=== PATIENT | male | born 1980 | race Caucasian/White ===

== ENCOUNTER → 2019-05-25 | Outpatient (CLI) | payer OTHER ==
[~2019-05-25] MED LIST: CETI10TA22 PO; DEXT10TA23 PO; DEXT25CA4 PO; ESZO3TAB28 PO; PANT40GR PO
[2019-05-25 12:52] LABS: BASO # 0.1 x10^3/uL (0.0-0.2); BASO % 1 % (0-3); EOS # 0.1 x10^3/uL (0.0-0.7); EOS % 1 % (0-3); HEMATOCRIT 44.1 % (39.0-53.0); HEMOGLOBIN 14.8 g/dL (13.0-17.5); LYMPH # 2.3 x10^3/uL (1.0-4.8); LYMPH % 13 % (24-48); MEAN CORPUSCULAR HEMOGLOBIN 32 pg (25-35); MEAN CORPUSCULAR HGB CONC 33 g/dL (31-37); MEAN CORPUSCULAR VOLUME 96 fL (79-100); MONO # 0.6 x10^3/uL (0.0-1.1); MONO % 3 % (0-9); NEUT # 15.1 x10^3/uL (1.8-7.7); NEUT % 83 % (31-73); PLATELET COUNT 262 x10^3/uL (140-400); RED CELL DISTRIBUTION WIDTH 13.8 % (11.5-14.5); WHITE BLOOD COUNT 18.2 x10^3/uL (4.0-11.0)
[2019-05-25 13:10] LABS: CALCIUM 9.4 mg/dL (8.5-10.1); CREATININE 1.1 mg/dL (0.7-1.3); GFR 74.5; POTASSIUM 4.1 mmol/L (3.5-5.1)
[2019-05-25 13:12] LABS: ALBUMIN 4.3 g/dL (3.4-5.0); TOTAL BILIRUBIN 0.6 mg/dL (0.2-1.0)
[2019-05-25 17:20] LABS: % EOS 1 % (0-5); % LYMPHS 14 % (24-48); % MONOS 3 % (0-10); % SEGS 82 % (35-66)
[2019-05-25 17:23] LABS: ANISOCYTOSIS SLIGHT; PLT ESTIMATE ADEQUATE (ADEQUATE); POLYCHROMASIA SLIGHT
--- NOTE | 2019-05-26 10:15 | NUR ---
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
== END | disposition home or self-care (01) ==
LOC: SURG 12:26 → EDSTATUS 14:30
PROVIDERS: ATTEND Surgery
DX: Z01.818 Encounter for other preprocedural examination (principal); K82.8 Other specified diseases of gallbladder; Z88.8 Allergy status to other drugs, medicaments and biological substances
CPT/HCPCS: 36415; 80048; 82040; 82247; 85007; 85025

== ENCOUNTER 2019-05-27 10:01 | Day surgery (SDC) | payer OTHER ==
[~2019-05-27] VITALS: Ht 180.3 cm; Wt 106.6 kg
[~2019-05-27 10:01] MED LIST changes: +BUPIVACAINE-EPI 0.5%-1:200000 MPF 30 ML VIAL. INJ ONE; +IV RINGERS,LACTATED 1000ML 1,000 ML IV SCH; +LIDOCAINE 1% PF 2 ML VIAL. ID PRN; +MORPHINE SULFATE 2 MG/ML VIAL. IV PRN; +ONDANSETRON PF 4 MG/2 ML VIAL. IV PRN; +PROCHLORPERAZINE 10 MG/2 ML VIAL. IV PRN; +fentaNYL PF VIAL 100 MCG/2 ML VIAL IV PRN
[2019-05-27] MEDS ORDERED: ROCURONIUM 50 MG/5 ML VIAL. ONE (10:53)
[2019-05-27] MEDS ORDERED: DEXAMETHASONE SOD PHOS 4 MG/ML VIAL ONE (10:53)
[2019-05-27] MEDS ORDERED: MIDAZOLAM HCL/PF 2 MG/2 ML VIAL. ONE ×2 (10:53→12:46)
[2019-05-27] MEDS ORDERED: ONDANSETRON PF 4 MG/2 ML VIAL. ONE (10:53)
[2019-05-27] MEDS ORDERED: fentaNYL PF VIAL 250 MCG/5 ML VIAL ONE (10:53)
[2019-05-27] MEDS ORDERED: PROPOFOL 20 ML IV ONE (10:53)
[2019-05-27] MEDS ORDERED: LIDOCAINE 2% PF 5 ML VIAL. ONE (10:53)
[2019-05-27] MEDS ORDERED: SURGICEL HEMOSTAT 4X8 EACH. ONE (12:34)
[2019-05-27] MEDS ORDERED: IOHEXOL 300 MG/ML 50 ML VIAL. ONE (12:34)
[2019-05-27] MEDS ORDERED: GLUCAGON,HUMAN RECOMBINANT 1 MG/ML VIAL. ONE (12:34)
[2019-05-27] MEDS ORDERED: GLYCOPYRROLATE 1 MG/5 ML VIAL. ONE (13:15)
[2019-05-27] MEDS ORDERED: ESMOLOL 100 MG/10 ML VIAL. IVP ONE (13:23)
[2019-05-27] MEDS ORDERED: SEVOFLURANE 61 TO 120 MINUTES. IH ONE (13:31)
[2019-05-27] MEDS ORDERED: KETOROLAC 30 MG/ML VIAL. ONE (13:43)
[2019-05-27] MEDS ORDERED: ceFAZolin 2GM PREMIX 2 GM/50 ML BAG IV ONE (14:00)
[2019-05-27] MEDS ORDERED: ALBUTEROL SULFATE 2.5 MG/3 ML NEBU. ONE (14:01)
--- NOTE | 2019-05-27 14:02 | RAD ---
Intraoperative cholangiogram without comparison for cholecystectomy. Findings and impression: 2 intraoperative fluoroscopic spot views demonstrate a cholangiogram with opacification of the intra and extrahepatic bile ducts, showing egress of contrast into the duodenum with no filling defects. Fluoroscopy time: 0.11 minutes. Images: 2 Electronically signed by: Beny Perez MD (05/27/2019 1:58 PM) [id number]
--- NOTE | 2019-05-27 14:10 | DISCH ---
DISCHARGE INSTRUCTIONS Condition on Discharge Condition on Discharge: Stable Activity After Discharge Activity Instructions for Disc: Activity as tolerated, Avoid exertion Driving Instructions after Dis: Do not drive (2-3 days) Diet after Discharge Diet after Discharge: Regular Wound Incision Care Wound/Incision Care: Ice to area for comfort Other wound/incision instructi: may shower Saturday Follow-Up Follow up with: Crow 06/04 in office PETE THOMAS MD May 27, 2019 14:10
[2019-05-27] MEDS: HYDROmorphone 2 MG/ML VIAL IV PRN ×2 (14:15→14:25)
--- NOTE | 2019-05-27 14:16 | PDOC ---
BRIEF OPERATIVE NOTE Date: May 27, 2019 Pre-Op Diagnosis biliary dyskinesia Post-Op Diagnosis same Procedure Performed l/s sundar with cholangiograms Surgeon [employer] Supervisor Yasmeen HENRIQUEZA Anesthesia Type: General Blood Loss 10cc IV Fluid 700cc Specimens Obtained GB Findings supple GB, normal grams Complications none Operative Note Wk # [id number] PETE THOMAS MD May 27, 2019 14:16
[2019-05-27 14:40] VITALS: BP 157/89
--- NOTE | 2019-05-27 14:42 | OP ---
DATE OF SURGERY: 05/27/2019 PREOPERATIVE DIAGNOSIS: Biliary dyskinesia. POSTOPERATIVE DIAGNOSIS: Biliary dyskinesia. PROCEDURE: Laparoscopic cholecystectomy with cholangiogram. SURGEON: Dr. Thomas. LAB TECHNOLOGIST: TONI Torres ANESTHESIA: General endotracheal. ESTIMATED BLOOD LOSS: 10. INTRAVENOUS FLUIDS: 700 mL. INDICATIONS: The patient is a 38-year-old with right upper quadrant pain. Ultrasound suggests small adherent stones versus polyps. He is brought for cholecystectomy. OPERATIVE FINDINGS: The liver was smooth, sharp and supple. Gallbladder was soft. No visual abnormalities seen with laparoscopic inspection. DESCRIPTION OF PROCEDURE: The patient brought to the operating suite, given a general endotracheal anesthetic and the abdomen prepped and draped in usual sterile fashion. A supraumbilical incision was infiltrated with local anesthetic, incised and a 5 mm Visiport used to gain access into the abdominal cavity, taking care to avoid injury to abdominal contents. Pneumoperitoneum established. Camera inserted and inspection carried out with results as noted above. With the table in reverse Trendelenburg rolled to the left, the epigastric and midclavicular ports were placed under direct vision. The lateral port location was used for a "alligator" grasper and the gallbladder was retracted superolaterally. The cystic duct and cystic artery were exposed. The duct was clipped on the gallbladder side. Cholangiograms were made. These were normal. In light of this, the catheter was removed. The cystic duct was clipped x 3 and divided, taking care to avoid injury or compromise the common duct. Cystic artery clipped and divided and gallbladder freed from the bed with cautery dissection and placed in an EndoCatch bag. Hemostasis obtained in the fossa with cautery and a small piece of Surgicel. No evidence of bile leak was seen. Table returned to level. Gallbladder delivered through the epigastric incision. Epigastric incision closed with interrupted 0 Vicryl suture. Intra-abdominal pressure decreased to 6 cm of water. No bleeding from the epigastric closure or from the midclavicular port site after its removal or from the location of the alligator grasper. Abdomen decompressed, camera slowly removed, no bleeding seen. Skin incisions closed with subcuticular 4-0 Monocryl. Steri-Strips and sterile dressings applied. The patient was awakened from his anesthetic and taken to the recovery room in satisfactory condition. PETE THOMAS MD DR: Herber JOB#: [id number] / [id number]
[2019-05-27] MEDS ORDERED: NEOSTIGMINE 10 MG/10 ML VIAL. ONE (15:03)
[2019-05-27] MEDS ORDERED: oxyCODONE/APAP 5/325 1 TAB TABLET PO ONE (15:30)
--- NOTE | 2019-05-28 18:06 | PATHOLOGY ---
[facility] Accession Number: [id number] . 01 Material submitted: . gallbladder - GALLBLADDER AND CONTENTS . 01 Clinical history: . Symptomatic cholelithiasis . 02 Diagnosis: Gallbladder, laparoscopic cholecystectomy: - Polypoid cholesterolosis, focal. - Chronic cholecystitis. (JPM:gas specialist; 05/28/2019) R 05/28/2019 1643 Local . 02 Comment: There are no calculi identified within the gallbladder lumen or specimen container. There is no evidence of malignancy. (JPM:gas specialist; 05/28/2019) . 02 Electronically signed: . Sebastian Flores MD, Pathologist NPI- [id number] . 01 Gross description: . The specimen is received in formalin, labeled "[place]jo, Dusty, gallbladder and contents", is an intact, distended gallbladder measuring 10.2 cm in length and 2.5 cm in maximum diameter with a smooth and glistening predominantly green-de luna serosa. The cystic duct is patent. The gallbladder lumen contains yellow-green, viscous bile and few polyps and no discrete calculi. The mucosa is medina-brown and with no recognizable cholesterolosis. The wall is 0.1 cm in average thickness. Representatively submitted in A1. ([facility]; 05/27/2019) [facility] 05/27/20191956 Local . 02 Pathologist provided ICD-10: K82.4, K81.1 . 02 CPT . 435626 Specimen Comment: A courtesy copy of this report has been sent to [phone], [phone] Specimen Comment: [id number] Specimen Comment: Report sent to / DR RODRIGUEZ Performed at: [address], [place], [place] [id number] MD Jhonatan Sue MD Phone: [phone] Performed at: [address] [id number] MD Sebastian Flores MD Phone: [phone]
== END 2019-05-27 15:45 | disposition home or self-care (01) ==
LOC: SURG 10:01 → EDUNIT# 11:30 → SURG 15:45
PROVIDERS: ATTEND Surgery
DX: K82.8 Other specified diseases of gallbladder (principal); K81.1 Chronic cholecystitis; G43.909 Migraine, unspecified, not intractable, without status migrainosus; I11.9 Hypertensive heart disease without heart failure; E78.00 Pure hypercholesterolemia, unspecified; G47.30 Sleep apnea, unspecified; K21.9 Gastro-esophageal reflux disease without esophagitis; K25.9 Gastric ulcer, unspecified as acute or chronic, without hemorrhage or perforation; H91.93 Unspecified hearing loss, bilateral; Z98.52 Vasectomy status; Z98.890 Other specified postprocedural states; Z72.89 Other problems related to lifestyle; Z87.891 Personal history of nicotine dependence; Z87.442 Personal history of urinary calculi; Z87.39 Personal history of other diseases of the musculoskeletal system and connective tissue
CPT/HCPCS: 47563; 74300; A7015; J0696; J1100; J1170; J1885; J2001; J2250; J2405; J2704; J2710; J3010; J3490; J7030; J7120; J7613; Q9967; 88304; J1610